=== PATIENT | male | born 1955 | race African-American/Black ===

== ENCOUNTER 2020-04-22 17:42 | Emergency (ER) | payer MEDICAID ==
[~2020-04-22] VITALS: Ht 172.7 cm; Wt 90.0 kg
[~2020-04-22 17:42] MED LIST: ASPI-1160; GLUCOPHAGE; INSULIN
[2020-04-22 18:33] LABS: MEAN CORPUSCULAR HEMOGLOBIN 20.7 pg (28.0-32.0); MEAN CORPUSCULAR VOLUME 66.4 fL (80.0-94.0); MEAN PLATELET VOLUME 7.5 fl (7.4-10.4); PLATELET 466 x1000/uL (130-400); RED BLOOD CELL COUNT 2.79 mill/uL (4.7-6.1); RED CELL DISTRIBUTION WIDTH 18.8 % (11.6-14.6)
[2020-04-22 18:40] LABS: CHLORIDE 109 mEq/L (98-107); HEMATOCRIT. 18.5 % (42.0-52.0); HEMOGLOBIN. 5.8 g/dL (14.0-18.0)
[2020-04-22 19:14] LABS: NUCLEATED RED BLOOD CELLS 1 /100 WBC
[2020-04-22 19:15] LABS: PLATELET ESTIMATE INCREASED
[2020-04-22] MEDS ORDERED: FERR325T6 MT (23:08)
[2020-04-23 00:15] VITALS: BP 147/96
== END 2020-04-23 00:23 | disposition home or self-care (01) ==
LOC: EDBD 17:42 → ER 17:42
DX: R53.83 Other fatigue (principal); D64.9 Anemia, unspecified; E11.9 Type 2 diabetes mellitus without complications; E78.00 Pure hypercholesterolemia, unspecified; I10 Essential (primary) hypertension
CPT/HCPCS: 36415; 80053; 82248; 85025; 86850; 86900; 86901; 86920; 93005; 99285; C1893; Z7610; P9016